=== PATIENT | male | born 1965 | race Caucasian/White ===

== ENCOUNTER 2018-04-17 08:09 | Day surgery (SDC) | payer BC ==
--- NOTE | 2018-04-16 18:33 | HP ---
CC: Dr. Sofia Glover; Dr. Ventura ADMITTING HISTORY AND PHYSICAL: DATE OF ADMISSION: 04/17/18 ADMITTING DIAGNOSES: 1. Right hydronephrosis and hydroureter. 2. Calculus, right proximal ureter. PLANNED PROCEDURE: Right stent insertion (to be followed in the near future by the shock wave lithot ripsy). SURGEON: Dr. Ventura. HISTORY OF PRESENT ILLNESS: Bari Rutledge is a 53-year-old gentleman with a history of recurrent renal calculi. He had right flank pain about a month ago, which then resolved. An ultrasound done i n my office revealed right hydronephrosis and proximal hydroureter with a calculus noted in the right proximal ureter. An x- ray confirmed a fairly large, about 11-mm calculus in the area of the right proximal ureter and is now being brought in for a right stent insertion to be followed at some point in the near future by shock wave lithotripsy. PAST MEDICAL HISTORY: Significant for recurrent renal calculi. MEDICATIONS ON ADMISSION: None. ALLERGIES: No known drug allergies. REVIEW OF SYSTEMS: He is otherwise in excellent health. There is no history of diabetes mellitus or any other major systemic illness. PHYSICAL EXAMINATION GENERAL: Reveals a pleasant healthy-appearing young gentleman. VITAL SIGNS: Blood pressure is 130/82, pulse 71 per minute, oxygen saturation 98% on room air. LUNGS: Clear bilaterally. CARDIOVASCULAR: Regular rate and rhythm. S1, S2. ABDOMEN: Soft with right flank tenderness. IMPRESSION: A 53-year-old gentleman with a large calculus in the right proximal ureter. PLAN: Planned procedure is right stent insertion to be followed in the near future by shock wave lit hotripsy. [id number]/[facility] #: [id number]
[2018-04-17] MEDS ORDERED: cefTRIAXone(*) 2 GM ADDV.VIAL IVPB ONE (08:36)
[2018-04-17] MEDS ORDERED: Gentamicin ADULT (*) 160 MG in NS 0.9% 100 ML* 100 ML IVPB ONE (09:00)
[2018-04-17] MEDS ORDERED: Lidocaine 2% PF * 5 ML VIAL ONE (09:03)
[2018-04-17] MEDS ORDERED: fentaNYL* 50 MCG/ML 2 ML VIAL (100 MCG VIAL) ONE (09:03)
[2018-04-17] MEDS ORDERED: Dexamethasone IV* 4 MG/ML 1 ML (4 MG) ONE (09:04)
[2018-04-17] MEDS ORDERED: Propofol* 10 MG/ML 20 ML BTL IV PUSH ONE (09:04)
[2018-04-17] MEDS ORDERED: Ondansetron INJ* 2 MG/ML VIAL ONE (09:04)
[2018-04-17] MEDS ORDERED: Ketorolac INJ* 30 MG/ML 1 ML VIAL ONE (09:04)
[2018-04-17] MEDS ORDERED: Iohexol 180 (CONTRAST) 10 ML SDV IV ONE (09:05)
[2018-04-17] MEDS ORDERED: fentaNYL* 50 MCG/ML 2 ML VIAL (100 MCG VIAL) IV PRN (09:10)
[2018-04-17] MEDS ORDERED: Naloxone* 0.4 MG/ML 1 ML VIAL IV PRN (09:10)
[2018-04-17] MEDS ORDERED: Tamsulosin CAP* 0.4 MG ONE (10:06)
[2018-04-17 10:09] VITALS: BP 121/85
--- NOTE | 2018-04-17 11:05 | RAD ---
HISTORY: post=stent placement COMPARISONS: April 16, 2018 VIEWS: Frontal views of the abdomen. FINDINGS: BOWEL: There is a nonspecific bowel gas pattern, with nondilated small bowel gas noted. CALCULI: Again noted is a calculus of the right hemiabdomen. There is been interval placement of a right ureteral stent. BONES AND SOFT TISSUES: Mild degenerative changes are noted. OTHER FINDINGS: None . IMPRESSION: RIGHT NEPHROLITHIASIS WITH A RIGHT URETERAL STENT
--- NOTE | 2018-04-17 14:18 | RAD ---
INDICATION: Right stent placement COMPARISONS: April 17, 2018 TECHNIQUE: Fluoroscopy was provided for a retrograde pyelogram and stent placement. Total fluoroscopy time is: 10 seconds FINDINGS: Contrast is noted within the renal collecting system. A ureteral stent is noted. IMPRESSION: FLUOROSCOPY WAS PROVIDED FOR A PAIN MANAGEMENT PROCEDURE CPT II Codes: G9500
--- NOTE | 2018-04-20 04:37 | OP ---
CC: Sofia Glover MD * DATE OF OPERATION: 04/17/18 - [facility] DATE OF : 63 SURGEON: Hosea Ventura MD ANESTHESIOLOGIST: Dr. Hudson. ANESTHESIA: General. PRE-OP DIAGNOSIS: 1. Right hydronephrosis. 2. Obstructing calculus, right proximal ureter. POST-OP DIAGNOSIS: 1. Right hydronephrosis. 2. Obstructing calculus, right proximal ureter. OPERATIVE PROCEDURE: Cystoscopy, right retrograde pyelogram, right ureteral calculus manipulation and right stent insertion. COMPLICATIONS: None. STENT USED: 6-Kittitian stent right ureter. INDICATIONS: Bari Rutledge is a 53-year-old gentleman with a history of recurrent renal calculi. He had been evaluated for large obstructing calculus in the right proximal ureter. He was initially scheduled for right stent insertion and lithotripsy on 05/04/18, but because of upcoming travel plans, decided to have the stent placed now to avoid any issues related to the obstruction during his travel. OPERATIVE FINDINGS: 1. Strictures, bulbar urethra. 2. Mild to moderate enlargement of median lobe of prostate. 3. Right hydronephrosis with proximal hydroureter with obstructing calculus right proximal ureter. POSTOPERATIVE CONDITION: Stable. DESCRIPTION OF PROCEDURE: After induction of general anesthesia, the patient was placed in dorsal lithotomy position. Sequential compression devices were in place and functioning. Initial cystoscopy revealed two strictures in the bulbar urethra which were fairly soft and the cystoscope was easily introduced through them. The prostate is mildly enlarged especially the median lobe. The bladder was examined and appears unremarkable. There was clear efflux noted from the left orifice. There was significantly diminished efflux noted from the right orifice. A guidewire was introduced into the right ureter. The large opaque calculus could be noted on fluoroscopy. The guidewire, after some initial manoeuvring was advanced proximally beyond the point of obstruction. Retrograde pyelogram revealed a moderate degree of right hydronephrosis and proximal hydroureter. The open-ended catheter was advanced to the level of the calculus and the calculus was gently manipulated into a more proximal position where it was not impacted. A 6-Kittitian stent was then introduced and positioned under fluoroscopy with good proximal and distal positioning obtained. Hydronephrotic drip was noted from the distal end of the stent. The bladder was emptied. The patient tolerated the procedure satisfactorily and was transferred back to recovery area in stable condition. [id number]/[facility] #: [id number] MTDD
== END 2018-04-17 11:21 | disposition home or self-care (01) ==
LOC: OR 08:09
PROVIDERS: ATTEND Urology
DX: N13.2 Hydronephrosis with renal and ureteral calculous obstruction (principal); N40.0 Benign prostatic hyperplasia without lower urinary tract symptoms; N35.919 Unspecified urethral stricture, male, unspecified site; Z87.442 Personal history of urinary calculi
CPT/HCPCS: 74018; 74420; C1876; J0696; J1100; J1580; J1885; J2405; J2704; J3010

== ENCOUNTER 2018-05-04 06:44 | Day surgery (SDC) | payer BC ==
[~2018-05-04 06:44] MED LIST: Buffered Lidocaine 0.9% SYRIN* 5 ML/SYR SYRINGE INTRADERM ONE; Sodium Citrate/Citric Acid* 15 ML UDC PO ONE
[2018-05-04] MEDS ORDERED: Sodium Citrate/Citric Acid* 15 ML UDC ONE (07:23)
[2018-05-04] MEDS ORDERED: cefTRIAXone(*) 2 GM ADDV.VIAL IVPB ONE (07:23)
--- NOTE | 2018-05-04 08:22 | RAD ---
Indication: Nephrolithiasis. Shock wave lithotripsy. Comparison: April 17, 2018 Technique: Supine view of the abdomen. REPORT AND IMPRESSION: #. Unchanged 1.0 cm stone visualized at the level of the RIGHT ureteral pelvic junction adjacent to the ureteral stent. No additional conspicuous urolithiasis. Unremarkable bowel gas pattern and soft tissue contours.
[2018-05-04] MEDS ORDERED: Propofol* 10 MG/ML 20 ML BTL IV PUSH ONE (10:10)
[2018-05-04] MEDS ORDERED: Lidocaine 2% PF * 5 ML VIAL ONE (10:18)
[2018-05-04 11:41] VITALS: BP 109/79
--- NOTE | 2018-05-04 12:20 | RAD ---
HISTORY: post op COMPARISONS: May 04, 2018 VIEWS: Frontal views of the abdomen. FINDINGS: BOWEL: There is a nonspecific bowel gas pattern, with nondilated small bowel gas noted. CALCULI: Again noted is calculus of the proximal right ureter, with a right ureteral stent. These are stable from the previous examination. BONES AND SOFT TISSUES: Minimal degenerative changes are noted. OTHER FINDINGS: The lung bases are clear. There is no subphrenic gas. IMPRESSION: RIGHT NEPHROLITHIASIS WITH RIGHT URETERAL STENT.
--- NOTE | 2018-05-05 04:42 | OP ---
CC: Dr. Sofia Glover * DATE OF OPERATION: 05/04/18 - [facility] DATE OF : [birth year] - AGE: 53 years, male. SURGEON: Hosea Ventura MD ANESTHESIOLOGIST: Dr. Vick. ANESTHESIA: General. PRE-OP DIAGNOSIS: Calculus, right proximal ureter. POST-OP DIAGNOSIS: Calculus, right proximal ureter. OPERATIVE PROCEDURE: Shock wave lithotripsy of calculus, right ureter. COMPLICATIONS: None. INDICATIONS: Bari Rutledge is a 53-year-old gentleman who had undergone urgent right stent insertion because of a large obstructing calculus in the right proximal ureter. He is now being brought in for lithotripsy. POSTOPERATIVE CONDITION: Stable. DESCRIPTION OF PROCEDURE: After induction of general anesthesia, the patient was placed on the lithotripsy table in supine position. The calculus in the proximal right ureter adjacent to the stent was localized using fluoroscopy. Shock wave lithotripsy was commenced at a rate of 60 shocks per minute initially. Periodic imaging revealed good localization and fragmentation and a total of 2400 shocks were administered. The plan is to obtain a postoperative x- ray to assess the degree of fragmentation prior to scheduling stent removal. The patient tolerated the procedure satisfactorily and was transferred back to the recovery area in stable condition. [id number]/[facility] #: [id number] MTDD
== END 2018-05-04 12:17 | disposition home or self-care (01) ==
LOC: OR 06:44
PROVIDERS: ATTEND Urology
DX: N20.1 Calculus of ureter (principal); Z68.34 Body mass index [BMI] 34.0-34.9, adult; Z87.442 Personal history of urinary calculi
CPT/HCPCS: 74018; A9270-GY; J0696; J2704

== ENCOUNTER 2018-06-29 14:31 | Day surgery (SDC) | payer BC ==
--- NOTE | 2018-06-12 07:50 | HP ---
CC: Dr. Glover * ADMITTING HISTORY AND PHYSICAL: DATE OF ADMISSION: 06/29/18 ADMITTING DIAGNOSIS: Calculus, right proximal ureter. PLANNED PROCEDURE: Shockwave lithotripsy, possible right stent insertion for calculus, right ureter. SURGEON: Dr. Ventura. HISTORY OF PRESENT ILLNESS: Bari Rutledge is a 53-year-old gentleman with a history of recurrent renal and ureteral calculi. He had been evaluated a couple of months ago for a fairly large approximately 11 mm calculus and had undergone stent insertion followed by lithotripsy. This had resulted in partial fragmentation, but he continues to have a persistent approximately 7 mm fragment or cluster of fragments in the proximal right ureter. He has been managed conservatively and has been on Flomax 0.4 mg with no real significant distal progression of the fragments, but surprisingly continues to be free of anything. I have recommended that we wait another couple of weeks and if he is not able to pass this, then to go ahead and proceed either with ureteroscopy with laser lithotripsy or with shockwave lithotripsy. At the present time, the plan is to proceed with shockwave lithotripsy, possible stent insertion. PAST MEDICAL HISTORY: Significant for renal calculi. MEDICATIONS ON ADMISSION: Currently, on Flomax 0.4 mg once a day temporarily. ALLERGIES: No known drug allergies. REVIEW OF SYSTEMS: There is no history of diabetes mellitus or any other major systemic illness. PHYSICAL EXAMINATION GENERAL: He is in excellent overall health and is physically active. VITAL SIGNS: Blood pressure is 132/90, pulse 90 per minute, oxygen saturation 97% on room air. LUNGS: Clear bilaterally. CARDIOVASCULAR: Regular rate and rhythm. S1, S2. ABDOMEN: Soft without any flank tenderness. IMPRESSION: A 53-year-old gentleman who had previously been treated for a large calculus in the right proximal ureter with partial fragmentation who has persistent fragments in the right proximal ureter. Planned procedure is shockwave lithotripsy, possible right stent insertion. [id number]/[facility] #: [id number] [facility]INGTON HOSPITALEmigdio
[~2018-06-29 14:31] MED LIST changes: -Buffered Lidocaine 0.9% SYRIN* 5 ML/SYR SYRINGE INTRADERM ONE; +Gentamicin ADULT (*) 160 MG in NS 0.9% 100 ML* 100 ML IVPB ONE; -Sodium Citrate/Citric Acid* 15 ML UDC PO ONE
[2018-06-29] MEDS ORDERED: cefTRIAXone(*) 2 GM ADDV.VIAL IVPB ONE (15:23)
[2018-06-29] MEDS ORDERED: Sodium Citrate/Citric Acid* 15 ML UDC ONE (15:23)
[2018-06-29] MEDS ORDERED: Lidocaine 2% PF * 5 ML VIAL ONE (16:42)
[2018-06-29] MEDS ORDERED: Propofol* 10 MG/ML 20 ML BTL ONE (16:42)
[2018-06-29] MEDS ORDERED: Furosemide IV* 10 MG/ML 2 ML VIAL (20 MG) ONE (16:49)
[2018-06-29] MEDS ORDERED: fentaNYL* 50 MCG/ML 2 ML VIAL (100 MCG VIAL) IV PRN (17:05)
[2018-06-29] MEDS ORDERED: Ondansetron INJ* 2 MG/ML VIAL IV PRN (17:05)
[2018-06-29] MEDS ORDERED: Naloxone* 0.4 MG/ML 1 ML VIAL IV PRN (17:05)
[2018-06-29] MEDS ORDERED: Iohexol 180 (CONTRAST) 10 ML SDV IV ONE (17:09)
[2018-06-29] MEDS ORDERED: fentaNYL* 50 MCG/ML 2 ML VIAL (100 MCG VIAL) ONE (17:44)
[2018-06-29 19:16] VITALS: BP 135/79
--- NOTE | 2018-06-29 21:39 | OP ---
CC: Dr. Glover * DATE OF OPERATION: 06/29/18 - [facility] DATE OF : 63 SURGEON: Hosea Ventura MD ANESTHESIOLOGIST: Dr. Vick. ANESTHESIA: General. PRE-OP DIAGNOSES: 1. Right hydronephrosis. 2. Calculus, right proximal ureter. POST-OP DIAGNOSES: 1. Right hydronephrosis. 2. Calculus, right proximal ureter. OPERATIVE PROCEDURE: 1. Shock wave lithotripsy of calculus, right ureter. 2. Right retrograde and right stent insertion. INDICATIONS: Bari Rutledge is a 53-year-old gentleman who had previously undergone shock wave lithotripsy for a large obstructing calculus. He was noted to have partial fragmentation, but has a persistent 6- to 7-mm fragment hung up in the area of the proximal right ureter with persistent hydronephrosis. COMPLICATIONS: None. STENT USED: 7-Tristanian stent, right ureter. DESCRIPTION OF PROCEDURE: After induction of general anesthesia, the patient was placed on the lithotripsy table in supine position. The calculus, which was in the proximal right ureter fairly close to the kidney, was localized using fluoroscopy. Shock wave lithotripsy was commenced at a rate of 60 shocks per minute. Intermittent fluoroscopy revealed adequate localization and a total of 2400 shocks were delivered. I still was not convinced that the stone was completely fragmented, so I elected to proceed with right retrograde pyelogram. This revealed right hydronephrosis and there was definitely resistance to advancing the open- ended catheter beyond the level of the calculus in the proximal right ureter. Once this was done, a 7-Tristanian stent could then be easily introduced with good proximal and distal positioning obtained. It is possible that he may have an element of a stricture at the level of the calculus where it had been impacted, and my plan is to allow the stent to stay in for a few weeks to allow for passive dilatation of the same. The patient tolerated the procedure satisfactorily and was transferred back to the recovery area in stable condition. [id number]/[facility] #: [id number] [facility] ISLANDEmigdio
== END 2018-06-29 19:41 | disposition home or self-care (01) ==
LOC: OR 14:31
PROVIDERS: ATTEND Urology
DX: N13.2 Hydronephrosis with renal and ureteral calculous obstruction (principal); Z87.442 Personal history of urinary calculi
CPT/HCPCS: 74018; A9270-GY; C1876; J0696; J1580; J1940; J2704; J3010